=== PATIENT | female | born 1955 | race Caucasian/White ===

== ENCOUNTER 2019-12-30 09:12 | Day surgery (SDC) | payer OTHER ==
--- OUTSIDE RECORDS SUMMARY | 2019-12-30 09:14 | XMS REPORT ---
:1955 Author Organization [employer] Care Team Providers Name Role Phone Katrina Austin Provider Role Unavailable Allergies, Adverse Reactions, Alerts Substance Reaction Event Type N.K.D.A. Info Not Available Non Drug Allergy Problems Problem Type Condition Code Onset Dates Condition Statu s Problem Benign hypertension I10 Active Problem Hyperlipidemia E78.5 Active Assessment Benign hypertension I10 Active Assessment Hyperlipidemia E78.5 Active Medications Medication Code Code Instructions Start End Status Dosage System Date Date Biotin [facility] 15825187454 1000 MCG Orally Active 1 ta blet Once a day Aspirin 81 [facility] 38379440876 81 MG Orally Active 1 ta blet Once a day Fosamax [facility] 79104710184 70 MG Orally Active 1 table t 30 minutes before the first food, beverage or medicine of the day with plain water Vitamin D3 [facility] 28936843884 2000 UNIT Active 1 capsu le Orally Once a day Lisinopril [facility] 52849594904 20 MG Orally Active 1 ta blet Once a day Simvastatin [facility] 02399644006 20 MG Orally Active 1 t ablet in Once a day the evening Probiotic [facility] [address]-45 Active not defi ash Formula Premarin [facility] 74128315294 0.625 MG/GM Active not def ined Vaginal Results No Known Results Summary Purpose eClinicalWorks Submission
--- OUTSIDE RECORDS SUMMARY | 2019-12-30 09:14 | XMS REPORT | Continuity of Care Document ---
:1955 Author Organization [facility] t Address [address] [place] [address] Care Team Providers Name Role Phone Unavailable Unavailable Unavailable Problems Condition Condition Condition Status Onset Resolution Last Treating Co mments Source Name Details Category Date Date Treatment Clinician Date Benign Benign Diagnosis Active [facility] Hyperlipid Hyperlipid Diagnosis Active [facility] Allergies, Adverse Reactions, Alerts This patient has no known allergies or adverse reactions. Medications Ordered Filled Start Stop Current Ordering Indication Dosage Frequency Signature Comments Components Source Medication Medication Date Date Medication? Clinician (SIG) Name Name Lisinopril Lisinopril Yes Katrina [address] [facility] Simvastatin Simvastatin Yes Katrina [address] [facility] Probiotic Probiotic Yes Katrina not [facility] Formula Formula [facility] defined [facility] Vitamin D3 Vitamin D3 Yes Katrina [address] [facility] Premarin Premarin Yes Katrina not [facility] defined [facility] Fosamax Fosamax Yes Katrina [address] [facility] 30 minutes [facility] before the [facility] food, Outpati beverage ent or Clinics medicine of the day with plain water Biotin Biotin Yes Katrina [address] [facility] Aspirin 81 Aspirin 81 Yes Katrina [address] [facility] Procedures This patient has no known procedures. Encounters Start End Encounter Admission Attending Care Care Encounter Source Date/Time Date/Time Type Type Clinicians Facility Department ID 2019-10-14 2019-10-14 Outpatient Azul Serrano [id number] [facility] 13:[facility]00 13[facility]00 t [facility] 2019-04-01 2019-04-01 [facility] [id number] [facility] 13:40:00 13:40:00 t [facility] 2019-03-27 2019-03-27 [facility] [id number] [facility] 08:51:00 08:51:00 t [facility] 2018-05-21 2018-05-21 [facility] [id number] [facility] 16:15:00 16:15:00 t [facility] 2017-08-20 2017-08-20 [facility] [id number] [facility] 09[facility]41:00 09:41:00 t [facility] 2017-08-14 2017-08-14 [facility] [id number] [facility] 15:45:00 15:45:00 t [facility] 2017-08-14 2017-08-14 [facility] [id number] [facility] 13:26:00 13:26:00 t [facility] Results This patient has no known results.
[2019-12-30] MEDS ORDERED: Ringers Lactate 1,000 ML IV ONE (09:40)
[2019-12-30 10:00] VITALS: O2SAT 100
[2019-12-30] MEDS ORDERED: LIDOCAINE 1% W/EPI 1:100,000 MDV 20 ML VIAL ONE (10:35)
[2019-12-30] MEDS ORDERED: NA CHLORIDE 0.9% 1,000 ML ONE (10:50)
[2019-12-30] MEDS ORDERED: FENTANYL CITR 100 MCG/2 ML ONE ×2 (11:18→12:40)
[2019-12-30] MEDS ORDERED: LIDOCAINE 1% MPF 5 ML VIAL ONE (11:19)
[2019-12-30] MEDS ORDERED: MIDAZOLAM HCL 2 MG/2 ML INJ ONE (11:19)
[2019-12-30] MEDS ORDERED: propofoL 200 MG/20 ML VIAL IV ONE ×2 (11:19→12:12)
[2019-12-30] MEDS ORDERED: KETOROLAC 30 MG/ML INJ ONE (11:47)
[2019-12-30] MEDS ORDERED: ONDANSETRON 4 MG/2 ML VIAL ONE (11:48)
[2019-12-30] MEDS ORDERED: NS 0.9% VIAL 10 ML ONE (12:37)
[2019-12-30] MEDS ORDERED: CEFAZOLIN SODIUM 1 GM/VIAL ONE (12:37)
[2019-12-30 12:54] VITALS: TEMP 97.6
[2019-12-30] MEDS ORDERED: IBUPROFEN 200 MG TAB PO ONE (13:16)
[2019-12-30] MEDS ORDERED: IBUPROFEN 400 MG TAB ONE (13:16)
[2019-12-30 13:22] VITALS: BP 118/63
--- NOTE | 2019-12-30 21:13 | OP ---
Date of Procedure: 12/30/2019 Surgeon: Linda Meadows MD Benefits Representative: None. Preoperative Diagnosis: Postmenopausal bleeding. Postoperative Diagnoses: Postmenopausal bleeding and endometrial mass that was about 3-4 cm. Procedures Performed: Operative hysteroscopy, separation of the adhesions of the mass from the endom etrial wall, vaginal and transcervical morcellation of the endometrial mass, dilation and curettage, repair of the cervical laceration with stitch. Specimens: Endometrial curettings and endometrial mass. Anesthesia: MAC plus paracervical block. Complications: No complications. Drains: No drains. Condition: Stable. Findings: Intrauterine mass that was very smooth on its surface, attached to the fundus. Rest of th e adhesions were thin and filmy to the endometrium. These were taken down with the help of the tip o f the scope. The endometrial mass was grasped with a single-tooth tenaculum mass clamps after the cervix was dilat ed and it was morcellated vaginally and transcervically through the vagina. Once most of it as much as could be excised for good sample and removal of mass, the procedure was completed. Description Of Procedure: After informed consent was verified, the patient was taken back to the OR, placed in a supine fashion on the operating table. MAC was given, placed in a dorsal lithotomy posi tion. Pelvic exam was performed. Uterus enlarged, anteflexed, mobile. Cervix exposed with a bivalv e speculum, injected with 1% lidocaine mixed with 1:100,000 epinephrine 5 cc at 12 o'clock and 4 and 8 o'clock positions of the cervical-vaginal junction, 10 cc each. There was some PVCs that were noti luis as the injection was being given, but she had settled down without any problems. The patient was placed in a Trendelenburg position. The cervix was prepped with Betadine x3, anterior lip grasped w ith 2 Allis clamps. Then, diagnostic SlimLine hysteroscope was used to perform a hysteroscopy after the scope was entered into the cavity as saw the smooth this round mass. The tip of the mass was at the internal os. The mass was filling the entire endometrial cavity and stretching. The operative s cope was introduced and the tip of the endoscope was used to separate these adhesions of the mass fro m the endometrial canal. Once all this was done and went back to the back of the mass here, the josue bowersment appeared to be not very dense and was to be able to take down with the scope. Once all this w as taken down, scope was pulled out. The cervix was dilated to 20-Turkish, which was the largest dila tor on the set. Then, it was stretched with the help gradually. A polyp forceps was used to stretch the cervical canal. Then, the mass was grasped under direct visualization with the long single-toot h tenaculum and gradually this was morcellated with the help of a Patton scissor. Then, the mass clamp was applied on this and morcellated. Once this was done, perhaps about 1/[address] to [address], there wa s no further route for me to continue this and the mass would not detach completely and come out. There was a tear of the cervix at 8 o'clock position, not much bleeding, however, needed to be repair ed. D and C was performed with #2 curette and handed out for permanent pathology. All the mistry wer e curetted. The scant endometrium here, which was consistent with findings. All the specimens were handed out for permanent pathology. Then, the cervix was sutured in a continuous running fashion wit h a 0 Vicryl suture on a CT1 needle and tied, and then the cervix was restored to its normal shape. There was excellent hemostasis. All the instruments were removed. Instrument, needle, and sponge co unts were done and were correct at the end of the case. The patient tolerated the procedure well. S he was recovered from anesthesia and taken to PACU in stable condition. She will have a followup milton ointment next Sunday to see me. She will be discharged home today. Regular diet and pain medication. Toradol 15 mg was given intravenously. SK/MODL Voice ID: [id number] Report ID: [id number]
== END 2019-12-30 13:30 | disposition home or self-care (01) ==
LOC: OR 09:12
PROVIDERS: ATTEND Obstetrics & Gynecology
PROC: 0UB97ZX Excision of Uterus, Via Natural or Artificial Opening, Diagnostic (ICD-10-PCS; 2019-12-30)
PROC: 0UDB7ZX Extraction of Endometrium, Via Natural or Artificial Opening, Diagnostic (ICD-10-PCS; 2019-12-30)
PROC: 0UJD8ZZ Inspection of Uterus and Cervix, Via Natural or Artificial Opening Endoscopic (ICD-10-PCS; 2019-12-30)
PROC: 0UDB8ZX Extraction of Endometrium, Via Natural or Artificial Opening Endoscopic, Diagnostic (ICD-10-PCS; principal; 2019-12-30 12:45)
DX: N95.0 Postmenopausal bleeding (principal); N95.2 Postmenopausal atrophic vaginitis; N95.1 Menopausal and female climacteric states; D25.0 Submucous leiomyoma of uterus; Z11.59 Encounter for screening for other viral diseases; I10 Essential (primary) hypertension; I48.91 Unspecified atrial fibrillation; E78.00 Pure hypercholesterolemia, unspecified; F41.1 Generalized anxiety disorder; Z79.82 Long term (current) use of aspirin; Z79.890 Hormone replacement therapy; Z79.899 Other long term (current) drug therapy
CPT/HCPCS: 86850; 86900; 86901; 88305; J0690; J2250; J2405; J2704; J3010; J7030; J7120; U0002